=== PATIENT | female | born 1990 | race Caucasian/White ===

== ENCOUNTER 2021-12-29 20:19 | Inpatient (IN) | payer BC ==
[2021-12-29] MEDS ORDERED: Ondansetron 4 MG/2 ML SDV IVPUSH PRN (21:06)
[2021-12-29] MEDS ORDERED: Calcium Carbonate 500 MG Tab.Chew PO PRN (21:06)
[2021-12-29] MEDS ORDERED: Lidocaine 1% 50 ML MDV INJECT PRN (21:06)
[2021-12-29] MEDS ORDERED: Nalbuphine 10 MG/1 ML Vial IVPUSH PRN (21:06)
[2021-12-29] MEDS ORDERED: Acetaminophen 325 MG Tab PO PRN (21:06)
[2021-12-29] MEDS ORDERED: Oxytocin/Lactated Ringers 10 UNIT/1,000 ML BAG IV SCH ×2 (21:15)
[2021-12-29] MEDS: Lactated Ringers 1,000 ML IV SCH ×2 (21:30→23:16)
[2021-12-29] MEDS ORDERED: diphenhydrAMINE 50 MG/ML SDV IVPUSH PRN (23:23)
[2021-12-29] MEDS ORDERED: Bupivacaine/fentaNYL/NS 100 ML Bag EPIDUR PRN (23:23)
[2021-12-29] MEDS ORDERED: fentaNYL 100 MCG/2 ML SDV EPIDUR PRN (23:23)
[2021-12-30] MEDS ORDERED: Bupivacaine 0.25% 10 ML SDV ONE
[2021-12-30] MEDS: ePHEDrine 50 MG/ML SDV IVPUSH PRN ×2 (00:27→00:33)
[2021-12-30] MEDS: Lactated Ringers 1,000 ML IV SCH (00:38)
[2021-12-30] MEDS ORDERED: Ibuprofen 600 MG Tab PO PRN (05:25)
[2021-12-30] MEDS ORDERED: Benzocaine/Menthol 20%-0.5% Spray 78 GM Cannister TOP PRN (05:25)
[2021-12-30] MEDS ORDERED: Docusate Sodium 100 MG Cap PO PRN (05:25)
[2021-12-30] MEDS ORDERED: Witch Hazel Medicated Pads 40/Jar TOP PRN (05:25)
[2021-12-30] MEDS: Acetaminophen 325 MG Tab PO PRN ×2 (07:16→18:23)
[2021-12-30] MEDS: Prenatal Multivitamin with Calcium/Folic Acid/Iron Tab PO SCH (18:23)
[2021-12-31] MEDS: Acetaminophen 325 MG Tab PO PRN ×2 (06:10→17:46)
[2021-12-31] MEDS: Prenatal Multivitamin with Calcium/Folic Acid/Iron Tab PO SCH (08:55)
== END 2021-12-31 18:49 | disposition home or self-care (01) | DRG 560 ==
LOC: JD.OBCHECK 20:19 → JD.OB 20:24 → JD.OBCHECK 21:05 → JD.OB 21:06 → OBSVTOIN 12-30 04:20 → JD.OB 12-30 04:21
PROVIDERS: ADMIT Obstetrics & Gynecology; ATTEND Obstetrics & Gynecology
PROC: 10E0XZZ Delivery of Products of Conception, External Approach (ICD-10-PCS; principal; 2021-12-30)
PROC: 10907ZC Drainage of Amniotic Fluid, Therapeutic from Products of Conception, Via Natural or Artificial Opening (ICD-10-PCS; 2021-12-30)
PROC: 0KQM0ZZ Repair Perineum Muscle, Open Approach (ICD-10-PCS; 2021-12-30)
PROC: 3E0R3BZ Introduction of Anesthetic Agent into Spinal Canal, Percutaneous Approach (ICD-10-PCS; 2021-12-30)
PROC: 00HU33Z Insertion of Infusion Device into Spinal Canal, Percutaneous Approach (ICD-10-PCS; 2021-12-30)
DX: O99.02 Anemia complicating childbirth (principal); D64.9 Anemia, unspecified; Z37.0 Single live birth; Z3A.40 40 weeks gestation of pregnancy; Z20.822 Contact with and (suspected) exposure to COVID-19; Z86.16 Personal history of COVID-19; Z88.0 Allergy status to penicillin
CPT/HCPCS: 01967; 36415; 51701; 51702; 59025; 59409; 85025; 86592; 86850; 86900; 86901; A9270-GY; J2590; J3010; J3490; J7120; U0002

== ENCOUNTER 2024-10-27 04:39 | Inpatient (IN) | payer BC ==
[2024-10-27] MEDS ORDERED: Ondansetron 4 MG/2 ML SDV IVPUSH PRN (05:03)
[2024-10-27] MEDS ORDERED: Acetaminophen 325 MG Tab PO PRN (05:03)
[2024-10-27] MEDS ORDERED: Lidocaine 1% 50 ML MDV INJECT PRN (05:11)
[2024-10-27] MEDS ORDERED: Nalbuphine 10 MG/1 ML Vial IVPUSH PRN (05:11)
[2024-10-27] MEDS ORDERED: Oxytocin/0.9 % Sodium Chloride 30 UNIT/500 ML BAG IV SCH (05:15)
[2024-10-27 05:31] LABS: BASOPHILS PERCENT AUTO 0.5 % (0.0-1.0); EOSINOPHILS ABSOLUTE AUTO 0.1 K/mm3 (0.0-0.4); EOSINOPHILS PERCENT AUTO 1.4 % (0.0-6.0); HEMATOCRIT 36.6 % (37.0-47.0); HEMOGLOBIN 12.6 gm/dl (12.0-16.0); IMMATURE GRAN ABSOLUTE AUTO 0.05 K/mm3 (0.00-0.05); IMMATURE GRAN PERCENT AUTO 0.8 % (0.0-0.4); LYMPHOCYTES ABSOLUTE AUTO 1.9 K/mm3 (1.0-4.8); LYMPHOCYTES PERCENT AUTO 28.6 % (24.0-44.0); MEAN CORPUSCULAR HEMOGLOBIN 32.5 pg (28.0-32.0); MEAN CORPUSCULAR HGB CONC 34.4 g/dl (32.0-36.0); MEAN CORPUSCULAR VOLUME 94.3 fl (83.0-99.0); MEAN PLATELET VOLUME 10.5 fl (9.4-12.3); MONOCYTES ABSOLUTE AUTO 0.5 K/mm3 (0.0-0.8); MONOCYTES PERCENT AUTO 6.8 % (0.0-8.0); NEUTROPHILS ABSOLUTE AUTO 4.1 K/mm3 (1.8-7.7); NEUTROPHILS PERCENT AUTO 61.9 % (41.0-71.0); PLATELET COUNT,PLT 142 K/mm3 (150-400); RED BLOOD CELL COUNT 3.88 M/mm3 (4.10-5.30)
[2024-10-27] MEDS: Lactated Ringers 1,000 ML IV SCH (05:33)
[2024-10-27] MEDS ORDERED: diphenhydrAMINE 50 MG/ML SDV IVPUSH PRN (05:59)
[2024-10-27] MEDS: Bupivacaine/fentaNYL/NS 100 ML Bag EPIDUR PRN (06:05)
[2024-10-27] MEDS: ePHEDrine 50 MG/ML SDV IVPUSH PRN (06:18)
[2024-10-27] MEDS: Oxytocin/0.9 % Sodium Chloride 30 UNIT/500 ML BAG IV SCH (09:14)
[2024-10-27] MEDS ORDERED: Docusate Sodium 100 MG Cap PO PRN (13:25)
[2024-10-27] MEDS: Acetaminophen 325 MG Tab PO PRN (14:07)
[2024-10-27] MEDS: Benzocaine/Menthol 20%-0.5% Spray 78 GM Cannister TOP PRN (14:08)
[2024-10-27] MEDS: Witch Hazel Medicated Pads 40/Jar TOP PRN (14:08)
== END 2024-10-28 14:27 | disposition home or self-care (01) | DRG 560 ==
LOC: JD.OBCHECK 04:39 → JD.OB 04:51 → JD.OBCHECK 05:03 → JD.OB 05:07 → OBSVTOIN 11:41 → JD.OB 11:42
PROVIDERS: ADMIT Obstetrics & Gynecology; ATTEND Obstetrics & Gynecology
PROC: 10D07Z6 Extraction of Products of Conception, Vacuum, Via Natural or Artificial Opening (ICD-10-PCS; principal; 2024-10-27)
PROC: 10907ZC Drainage of Amniotic Fluid, Therapeutic from Products of Conception, Via Natural or Artificial Opening (ICD-10-PCS; 2024-10-27)
PROC: 0KQM0ZZ Repair Perineum Muscle, Open Approach (ICD-10-PCS; 2024-10-27)
PROC: 3E0R3BZ Introduction of Anesthetic Agent into Spinal Canal, Percutaneous Approach (ICD-10-PCS; 2024-10-27)
PROC: 00HU33Z Insertion of Infusion Device into Spinal Canal, Percutaneous Approach (ICD-10-PCS; 2024-10-27)
DX: O76 Abnormality in fetal heart rate and rhythm complicating labor and delivery (principal); Z37.0 Single live birth; O70.1 Second degree perineal laceration during delivery; O69.81X0 Labor and delivery complicated by cord around neck, without compression, not applicable or unspecified; Z3A.40 40 weeks gestation of pregnancy
CPT/HCPCS: 36415; 51701; 59025; 59409; 85025; 86592; 86850; 86900; 86901; A9270-GY; C1758; J3490; J7120; J7999